=== PATIENT | male | born 1965 | race Caucasian/White ===

== ENCOUNTER 2024-04-07 17:24 | Emergency (ER) | payer OTHER ==
[2024-04-07] MEDS ORDERED: HYDROCODONE/APAP 5/325 MG TAB ONE (18:02)
[2024-04-07] MEDS ORDERED: FLUORESCEIN SODIUM 1 MG/WRAP ONE (19:24)
[2024-04-07] MEDS ORDERED: TETRACAINE HCL 0.5% 4ML OPTH ONE (19:24)
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
[2024-04-07 20:13] VITALS: TEMP 97.6
[2024-04-07 20:14] VITALS: BP 133/85; O2SAT 97
== END 2024-04-07 20:05 | disposition home or self-care (01) ==
LOC: ER 17:24
DX: S05.02XA Injury of conjunctiva and corneal abrasion without foreign body, left eye, initial encounter (principal)
CPT/HCPCS: 99283